=== PATIENT | female | born 1985 | race Caucasian/White ===

== ENCOUNTER → 2018-02-03 | Outpatient (CLI) | payer OTHER ==
--- NOTE | 2018-02-03 08:15 | CT ---
EXAMINATION TYPE: CT brain wo con DATE OF EXAM: 02/03/2018 COMPARISON: NONE HISTORY: Headaches of unusual duration per order. Additional symptoms of numbness and dizzy spells wi th affected vision per patient. CT DLP: 1091 mGycm. Automated Exposure Control for Dose Reduction was Utilized. TECHNIQUE: CT scan of the head is performed without contrast. FINDINGS: There is no acute intracranial hemorrhage, mass effect, or midline shift identified. The ventricles and sulci are within normal limits in size. Regan-white matter differentiation is maintain ed. The globes are intact and the visualized sinuses are clear. There is nonformed the left frontal s inus incidentally noted. There are low lying cerebellar tonsils into the foramen magnum confirmed on axial images 1 through 5 and sagittal reconstructed images. 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 Consider MRI confirmation/correlation.
== END ==
LOC: RADCTMAIN 07:02
PROVIDERS: ATTEND Internal Medicine
DX: R51 Headache (principal); Z88.1 Allergy status to other antibiotic agents; Z91.040 Latex allergy status
CPT/HCPCS: 70450

== ENCOUNTER → 2018-03-03 | Outpatient (CLI) | payer OTHER ==
--- NOTE | 2018-03-03 23:24 | MR ---
EXAMINATION TYPE: MR cervical spine wo con DATE OF EXAM: 03/03/2018 COMPARISON: NONE HISTORY: Headaches and Numbness in Both Arms, chiari malformation surgery 2015 TECHNIQUE: Multiplanar, multisequence images of the cervical spine were acquired. Findings Cervical vertebra have normal alignment. Disc spaces are fairly normal. There is slight decreased sig nal in the disks in the cervical spine. Cervical spinal cord has normal signal pattern. There is no e sergio. The cerebellar tonsils extend through the foramen magnum. There is apparent occipital craniotom y defect. Fourth ventricle is relatively large. There is no paraspinal mass. There is no cervical dis c herniation. I see no bony destructive process. There are small posterior disc bulges at C5-6 C6-7. There is developmentally adequate spinal canal. 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 Previous surg zulema. Minimal disc bulging at C5-6 C6-7. No fracture. No spinal stenosis.
== END | disposition home or self-care (01) ==
LOC: RADMRIMAIN 17:42
PROVIDERS: ATTEND Neurological Surgery
DX: G93.5 Compression of brain (principal); M50.222 Other cervical disc displacement at C5-C6 level
CPT/HCPCS: 72141

== ENCOUNTER → 2022-07-20 | Outpatient (CLI) | payer OTHER ==
--- NOTE | 2022-07-20 09:54 | XR ---
EXAMINATION TYPE: XR shoulder complete LT DATE OF EXAM: 07/20/2022 COMPARISON: NONE HISTORY: Pain TECHNIQUE: Three views are submitted. FINDINGS: The osseous structures are intact. There is no acute fracture or dislocation. Mild hypertrophic dixon ge of the AC joint. IMPRESSION: 1. No acute process.
== END | disposition home or self-care (01) ==
LOC: RADXRMAIN 09:31
PROVIDERS: ATTEND Family Medicine
DX: M25.512 Pain in left shoulder (principal)